=== PATIENT | female | born 1950 | race Caucasian/White ===

== ENCOUNTER 2019-12-22 10:51 | Outpatient (CLI) | payer MEDICARE, SELFPAY ==
[2019-12-22 11:10] LABS: Basophils Percent Auto 0.3 % (0.2-1.2); Eosinophils Absolute Auto 0.1 K/mm3 (0-0.3); Eosinophils Percent Auto 1.9 % (0-4.4); Hematocrit 36.7 % (37.0-47.0); Lymphocytes Absolute Auto 1.98 K/mm3 (0.9-3.2); Lymphocytes Percent Auto 53.7 % (18.3-44.2); Mean Corpuscular HGB Conc 33.5 g/dl (32-36); Mean Corpuscular Hemoglobin 33.4 pg (26-34); Mean Corpuscular Volume 99.7 fl (80-100); Mean Platelet Volume 10.8 fl (7.4-10.4); Monocytes Absolute Auto 0.2 K/mm3 (0.1-0.6); Monocytes Percent Auto 4.3 % (2.6-8.5); Neutrophils Absolute Auto 1.5 K/mm3 (1.3-6.7); Neutrophils Percent Auto 39.8 % (45.5-73.1); Platelet Count Result 160 k/mm3 (150-375); Red Blood Count 3.68 M/mm3 (4.2-5.4); Red Cell Distribution Width 12.8 % (11.5-14.5); White Blood Count 3.7 K/mm3 (4.5-10.0)
[2019-12-22 11:26] LABS: Alanine Aminotransferase 19 U/L (4-35); Albumin Level 4.4 g/dL (3.5-5.1); Alkaline Phosphatase 73 U/L (38-126); Anion Gap 9 mmol/L (8-16); Aspartate Amino Transferase 27 U/L (14-36); Bilirubin,Total 0.7 mg/dL (0.2-1.3); Blood Urea Nitrogen 23 mg/dL (7-17); Calcium 9.3 mg/dL (8.4-10.2); Carbon Dioxide 24 mmol/L (22-30); Chloride 103 mmol/L (98-107); Estimated Glomerular Filt Rate > 60; Glucose 143 mg/dL (65-105); Potassium 4.7 mmol/L (3.4-5.0); Sodium 136 mmol/L (137-145)
[2019-12-22 11:27] LABS: Hemoglobin 12.3 g/dL (12.0-15.0)
[2019-12-22 11:32] LABS: Add Urine Microscopic? YES; Appearance Urine Clear (Clear); Bilirubin Urine Negative (Negative); Blood Urine Negative (Negative); Color Urine Yellow (Yellow); Glucose Urine UA Negative (Negative); Ketones Urine Negative (Negative); Leukocyte Esterase Ur 1+ LEU/UL (Negative); Mucus Urine Rare /lpf; Nitrate Urine Negative (Negative); Protein Urine Negative (Negative); RBC Urine 0-2 /hpf (0-2); Specific Grav Ur 1.014 (1.001-1.035); Squamous Epithelial Cell Urine Few /hpf (Few); Urobilinogen Urine Negative mg/dL (<2.0)
[2019-12-22 11:42] LABS: Iron 113 ug/dL (37-170)
[2019-12-22 11:51] LABS: Percent Iron Saturation 33 % (20-50)
[2019-12-22 12:12] LABS: Hemoglobin A1C 5.5 % (<5.7)
== END 2019-12-22 10:52 | disposition home or self-care (01) ==
PROVIDERS: PCP Internal Medicine; Visit Provider Clinical Nurse Specialist
DX: R73.01 Impaired fasting glucose (principal); D64.9 Anemia, unspecified; I95.9 Hypotension, unspecified
CPT/HCPCS: 36415; 80053; 81001; 82728; 83036; 83540; 83550; 83735; 84443; 85025

== ENCOUNTER 2020-01-29 06:48 | Outpatient (CLI) | payer MEDICARE, SELFPAY ==
--- NOTE | ~2020-01-29 | CT_ITS ---
EXAMINATION: CT abdomen pelvis wo/w con DATE: 01/29/2020 07:45 INDICATION: Gross hematuria TECHNIQUE: Computed tomography (CT) of the abdomen and pelvis was performed without and subsequently with 130 cc Omnipaque 350 intravenous contrast. Automated exposure control and iterative reconstructi on technique were employed. Exam dose: 791.33 mGy-cm total exam DLP. COMPARISON: 01/29/2020 KUB 08/09/2015 complete abdominal ultrasound FINDINGS: There are localized areas of discoid atelectasis or scarring of the lung bases. No pulmonar y consolidation. No pleural effusion. Normal heart size. No pericardial effusion. There are scattered hepatic hypoattenuating lesions, the largest situated in the lateral segment of t he left hepatic lobe, measuring 9 mm maximal dimension. These are likely hepatic cysts. The gallbladder is present. No bile duct dilatation. No pancreatic mass lesion or calcification or pa ncreatic duct dilatation. Normal splenic size. Normal morphology of the adrenal glands. Noncontrast examination reveals no urinary tract calculus or hydroureteronephrosis. There are multiple bilateral small renal cysts, the largest approximately 8.5 mm. No filling defect o f the renal collecting systems, ureters or urinary bladder is evident. Normal caliber of the abdominal aorta. No intraperitoneal or retroperitoneal or pelvic mass lesion or adenopathy or ascites. Minimal sigmoid diverticulosis; no CT evidence of diverticulitis. No bowel obstruction, bowel wall th ickening, pneumatosis or intraperitoneal free air is detected. There is severe degenerative disc disease and minimal retrolisthesis at L4-5. No suspicious osteolytic or osteoblastic lesions are noted. IMPRESSION: Hepatic and renal cysts Mild sigmoid diverticulosis Reviewed, dictated and finalized at Location [facility]. Reviewed, dictated and finalized at location B.
--- NOTE | ~2020-01-29 | XR_ITS ---
XR abdomen/kub 1V DATE: 01/29/2020 07:15 INDICATION: Gross hematuria TECHNIQUE: AP projection COMPARISON: 01/29/2020 CT abdomen pelvis with and without IV contrast material FINDINGS: There is no evidence of bowel obstruction. There are some nonspecific nondistended gas cont aining small bowel segments which might represent mild adynamic ileus. The psoas shadows are intact. No visceromegaly is evident. No significant abnormal calcification is detected. Included skeletal structures are unremarkable. IMPRESSION: Nonspecific abdomen Reviewed, dictated and finalized at [facility]. Reviewed, dictated and finalized at location B. IMPRESSION: Nonspecific abdomen
[2020-01-29 07:24] LABS: Estimated Glomerular Filt Rate > 60
== END 2020-01-29 06:49 | disposition home or self-care (01) ==
LOC: ANHIMG 06:49
PROVIDERS: PCP Internal Medicine; Visit Provider Nurse Practitioner Family
DX: R31.0 Gross hematuria (principal); K57.30 Diverticulosis of large intestine without perforation or abscess without bleeding; N28.1 Cyst of kidney, acquired; K76.89 Other specified diseases of liver
CPT/HCPCS: 74018; 74178; Q9967

== ENCOUNTER 2020-11-08 08:56 | Outpatient (CLI) | payer MEDICARE, SELFPAY ==
--- NOTE | ~2020-11-08 | DEXA_ITS ---
Bone Density Report Name: Rocio Malave Age: 70 Sex: Female Ethnicity: White Date of : 1950 Indication: postmenopausal; hysterectomy; Referring Provider: SELINA RICK D.O. Study: Bone densitometry was performed. Exam Date: November 08, 2020 Accession number: [id number] Bone Density: Region BMD T-score Z-score Classification AP Spine (L1, L3) 1.084 0.6 2.7 Normal Femoral Neck (Left) 0.769 -0.7 1.1 Normal Total Hip (Left) 0.887 -0.5 1.1 Normal Total Hip Bilateral Avg 0.917 -0.3 1.4 Normal Femoral Neck (Right) 0.840 -0.1 1.7 Normal Total Hip (Right) 0.946 0.0 1.6 Normal World Health Organization criteria for BMD impression classify patients as: Normal (T-score at or above -1.0), Osteopenia (T-score between -1.0 and -2.5), or Osteoporosis (T-score at or below -2.5). 10-year Fracture Risk: FRAX not reported because: All T-scores for Spine Total, Hip Total, Femoral Neck at or above -1.0 Previous Exams: Region Exam Age BMD T-score BMD Change BMD Change Date g/cm2 vs Baseline vs Previous AP Spine(L1, L3) 11/08/2020 70 1.084 0.6 -0.019(-1.8%) -0.019(-1.8%) 08/05/2017 67 1.103 0.8 Total Hip(Left) 11/08/2020 70 0.887 -0.5 -0.076(-7.8%)* -0.076(-7.8%)* 08/05/2017 67 0.962 0.2 Total Hip(Right) 11/08/2020 70 0.946 0.0 -0.069(-6.8%)* -0.069(-6.8%)* 08/05/2017 67 1.015 0.6 *Denotes significance at 95% confidence level, LSC for AP Spine = 0.022 g/cm2, LSC for Total Hip = 0.027 g/cm2 Clinical Information Provided by Patient: Has used the following medications: Vitamin D Has the following medical conditions: Hysterectomy Patient maximum height was 61 Menopause Age: 50 Onset of menses at age 13 Number of children 1 Impression: The patient has normal bone mass. The BMD for the Total Hip(Left) decreased, changing by -7.8% since the last DXA exam. The BMD for the Total Hip(Right) decreased, changing by -6.8% since the last DXA exam. Discussion: BONE DENSITY IS ABOVE THE MINIMUM DESIRABLE LEVEL AT ALL SKELETAL SITES TESTED. This patient?s bone mineral density is above the minimum desirable level (T-score -1.0 or better) at all sites measured. The patient should follow a healthful lifestyle (good nutrition with adequate calcium and vitamin D, and appropriate weight-bearing exercise). Follow-Up: Consider repeating this study in 3 to 4 years to reassess this patient's status, or sooner if there is some new clinical indication.
== END 2020-11-08 08:57 | disposition home or self-care (01) ==
LOC: ANHIMG 08:57
PROVIDERS: PCP Internal Medicine; Visit Provider Internal Medicine
DX: Z78.0 Asymptomatic menopausal state (principal)
CPT/HCPCS: 77080

== ENCOUNTER 2021-01-01 10:02 | Outpatient (CLI) | payer MEDICARE, SELFPAY ==
--- NOTE | ~2021-01-01 | XR_ITS ---
EXAMINATION: XR_CERV2-3V_CR EXAM DATE: 01/01/2021 10:27 INDICATION: Cervicalgia, right-sided base of skull. TECHNIQUE: Frontal, lateral projections of the cervical spine, open-mouth odontoid projection. Ther e is no prior study for comparison. FINDINGS: The odontoid process is intact. The lateral masses of C1 line up with C2. There is 4 mm a nterolisthesis C7 on T1 with advanced facet arthropathy at this level. There is moderate to severe di sc disease C4-5 and 5-6, moderate at C6-7. Mid cervical uncovertebral joint disease causing some amou nt of neural foraminal stenosis. Prevertebral soft tissue and pre-dens space are within normal limits . Lung apices are clear. IMPRESSION: Cervical spondylosis as above. Reviewed, dictated and finalized at location B.
== END 2021-01-01 10:03 | disposition home or self-care (01) ==
PROVIDERS: PCP Internal Medicine; Visit Provider Nurse Practitioner
DX: M47.812 Spondylosis without myelopathy or radiculopathy, cervical region (principal); M48.02 Spinal stenosis, cervical region
CPT/HCPCS: 72040

== ENCOUNTER 2021-02-18 10:00 | Outpatient (RCR) | payer MEDICARE, SELFPAY ==
--- NOTE | 2021-01-30 11:22 | PTOPEVAL ---
PHYSICAL THERAPY EVALUATION AND PLAN OF CARE Thank you for referring Rocio Malave to [facility].? The patient is scheduled to be seen for therapy? 1-2x/week for 3-5 weeks. Please review, sign, date and return this plan of care OSVALDO. I agree with and certify that the following plan of care is medically necessary. Referring Physician Date Attending Provider: Nadiya Monahan, ANA Evaluation Diagnosis neck pain Onset 10/2020 Subjective Information States that starting in October Query Text:As Reported By Patient/ 2020 she started to feel a lot Family of stiffness in the right side of the neck. She thought it was from doing more yard work. It never did go away. She was trying alternating heat/ice which was temporary. States that she enjoys swimming several times a week and she has been having difficulty because o Self Report Pain Assessment Left Neck Reported Pain Level 3 Pain Description Aching,Spasms,Tightness Pain Frequency Chronic,Intermittent Other Pain Aggravating Factors swimming Pain Score Pain Score 3: Self Report Interventions Used Interventions Used By Clinicians Exercise,Joint Mobilization Pain Relief Interventions Used By Heat Patient Cervical and Lumbar ROM Cervical ROM Cervical Flexion (0-60) 45 Query Text:Active in Degrees Cervical Extension (0-70) 30 Query Text:Active in Degrees Cervical Rotation Right (0-90) 55 Query Text:Active in Degrees Cervical Rotation Left (0-90) 40 Query Text:Active in Degrees Cervical ROM Comments pain with rotation and extension; very mild pull with flexion Upper Extremity Muscle Strength Testing Scapular/Shoulder Left Shoulder Flexion Strength 5 Normal Shoulder Extension Strength 5 Normal Shoulder Abduction Strength 5 Normal Shoulder Medial Rotation Strength 5 Normal Shoulder Lateral Rotation Strength 5 Normal Right Shoulder Flexion Strength 4 Good Shoulder Extension Strength 4 Good Shoulder Abduction Strength 4 Good Shoulder Medial Rotation Strength 4+ Good + Shoulder Lateral Rotation Strength 4+ Good + Palpation Assessment Palpation Palpation significant tightness noted to upper trapezius, posterior scalenes, and suboccipitals General Exercise General Exercises Side Bilateral Exercise Type
--- NOTE | 2021-02-18 11:13 | PTOPEVAL ---
PHYSICAL THERAPY DISCHARGE NOTE Thank you for referring Rocio Malave to [facility].? Please review, sign, date and return this plan of care OSVALDO. I agree with and certify that the following plan of care is medically necessary. Referring Physician Date Attending Provider: Nadiya Monahan, ASSISTANT KITCHEN MANAGER Discharge Diagnosis neck pain Onset 10/2020 Subjective Information States she is doing ok. She is Query Text:As Reported By Patient/ not sure she is feeling a lot Family better at this time. She did try a water aerobics class and was very sore afterward. We discussed at length how she can continue to improving her symptoms at home and what she can do to help maintain a healthy spine. Discussed the difference between arthritic pain and muscle pain and how likely she is experiencing decreased motion of the neck secondary to arthritis but because of the decreased motion she is having pain and tightness in the muscles. She seems to be of understanding Self Report Pain Assessment Left Neck Reported Pain Level 3 Pain Description Aching,Tightness Pain Score Pain Score 3: Self Report Interventions Used Interventions Used By Clinicians Exercise,Heat,Joint Mobilization Cervical and Lumbar ROM Cervical ROM Cervical Flexion (0-60) 45 Query Text:Active in Degrees Cervical Extension (0-70) 30 Query Text:Active in Degrees Cervical Rotation Right (0-90) 60 Query Text:Active in Degrees Cervical Rotation Left (0-90) 50 Query Text:Active in Degrees Cervical ROM Comments pain with rotation and extension; Upper Extremity Muscle Strength Testing Scapular/Shoulder Left Shoulder Flexion Strength 5 Normal Shoulder Extension Strength 5 Normal Shoulder Abduction Strength 5 Normal Shoulder Medial Rotation Strength 5 Normal Shoulder Lateral Rotation Strength 5 Normal Right Shoulder Flexion Strength 4+ Good + Shoulder Extension Strength 4+ Good + Shoulder Abduction Strength 4+ Good + Shoulder Medial Rotation Strength 4+ Good + Shoulder Lateral Rotation Strength 4+ Good + Palpation Assessment Palpation Palpation improved muscle tissue quality with decrease
== END 2021-02-18 13:56 | disposition home or self-care (01) ==
LOC: ANHPT 10:00
PROVIDERS: PCP Internal Medicine; Visit Provider Nurse Practitioner
DX: M54.2 Cervicalgia (principal)
CPT/HCPCS: 97110; 97140; 97162

== ENCOUNTER 2021-12-01 08:36 | Outpatient (CLI) | payer MEDICARE, SELFPAY ==
[2021-12-01 18:50] LABS: Basophils Percent Auto 0.4 % (0.2-1.2); Eosinophils Absolute Auto 0.1 K/mm3 (0-0.3); Hematocrit 37.5 % (37.0-47.0); Hemoglobin 12.1 g/dL (12.0-15.0); Immature Granulocyte Absolute 0.01 K/mm3 (0.00-0.031); Immature Granulocyte Percent A 0.2 % (0-0.5); Immature Platelet Fraction Pct 4.9 % (0.9-11.2); Lymphocytes Absolute Auto 3.68 K/mm3 (0.9-3.2); Mean Corpuscular HGB Conc 32.3 g/dl (32-36); Mean Corpuscular Volume 105.3 fl (80-100); Mean Platelet Volume 13.2 fl (7.4-10.4); Monocytes Absolute Auto 0.2 K/mm3 (0.1-0.6); Monocytes Percent Auto 3.8 % (2.6-8.5); Neutrophils Absolute Auto 1.3 K/mm3 (1.3-6.7); Neutrophils Percent Auto 24.6 % (45.5-73.1); Platelet Count Result 156 k/mm3 (150-375); Red Blood Count 3.56 M/mm3 (4.2-5.4); Red Cell Distribution Width 14.6 % (11.5-14.5); White Blood Count 5.3 K/mm3 (4.5-10.0)
[2021-12-01 18:58] LABS: Alanine Aminotransferase 19 U/L (6-35); Albumin Level 4.4 g/dL (3.5-5.1); Alkaline Phosphatase 82 U/L (38-126); Anion Gap 8 mmol/L (8-16); Aspartate Amino Transferase 45 U/L (14-36); Bilirubin,Total 0.5 mg/dL (0.2-1.3); Blood Urea Nitrogen 20 mg/dL (7-17); Calcium 9.7 mg/dL (8.4-10.2); Carbon Dioxide 27 mmol/L (22-30); Chloride 104 mmol/L (98-107); Cholesterol 189 mg/dL (0-200); Estimated Glomerular Filt Rate > 60; Glucose 90 mg/dL (65-110); HDL Direct 54 mg/dL; Sodium 139 mmol/L (137-145); Triglycerides 76 mg/dL (<150)
[2021-12-01 19:09] LABS: LDL Cholesterol Direct 102 mg/dL
[2021-12-01 22:20] LABS: Vitamin D 25 Hydroxy 66.1 ng/mL
== END 2021-12-01 08:37 | disposition home or self-care (01) ==
LOC: ANHGOSHLAB 08:38
PROVIDERS: PCP Internal Medicine; Visit Provider Nurse Practitioner
DX: E55.9 Vitamin D deficiency, unspecified (principal); Z13.220 Encounter for screening for lipoid disorders; Z13.29 Encounter for screening for other suspected endocrine disorder
CPT/HCPCS: 36415; 80053; 80061; 82306; 85025; 85055

== ENCOUNTER 2022-03-13 10:51 | Outpatient (CLI) | payer MEDICARE, SELFPAY ==
[2022-03-13 11:04] LABS: Basophils Percent Auto 0.4 % (0.2-1.2); Eosinophils Absolute Auto 0.1 K/mm3 (0-0.3); Eosinophils Percent Auto 2.1 % (0-4.4); Hematocrit 34.8 % (37.0-47.0); Hemoglobin 11.4 g/dL (12.0-15.0); Immature Granulocyte Absolute 0.01 K/mm3 (0.00-0.031); Immature Granulocyte Percent A 0.2 % (0-0.5); Lymphocytes Absolute Auto 2.93 K/mm3 (0.9-3.2); Lymphocytes Percent Auto 61.2 % (18.3-44.2); Mean Corpuscular HGB Conc 32.8 g/dl (32-36); Mean Corpuscular Hemoglobin 35.1 pg (26-34); Mean Corpuscular Volume 107.1 fl (80-100); Mean Platelet Volume 9.7 fl (7.4-10.4); Monocytes Absolute Auto 0.3 K/mm3 (0.1-0.6); Monocytes Percent Auto 5.6 % (2.6-8.5); Neutrophils Absolute Auto 1.5 K/mm3 (1.3-6.7); Neutrophils Percent Auto 30.5 % (45.5-73.1); Platelet Count Result 113 k/mm3 (150-375); Red Blood Count 3.25 M/mm3 (4.2-5.4); White Blood Count 4.8 K/mm3 (4.5-10.0)
[2022-03-13 11:22] LABS: Platelet Estimate Decreased (Adequate); Schistocytes None Seen (NORMAL)
[2022-03-13 11:23] LABS: Atypical Lymphocytes Present
[2022-03-13 13:13] LABS: Alanine Aminotransferase 21 U/L (6-35); Albumin Level 4.5 g/dL (3.5-5.1); Alkaline Phosphatase 72 U/L (38-126); Anion Gap 10 mmol/L (8-16); Aspartate Amino Transferase 28 U/L (14-36); Bilirubin,Total 0.6 mg/dL (0.2-1.3); Blood Urea Nitrogen 16 mg/dL (7-17); Calcium 9.1 mg/dL (8.4-10.2); Carbon Dioxide 24 mmol/L (22-30); Chloride 106 mmol/L (98-107); Estimated Glomerular Filt Rate > 60; Glucose 82 mg/dL (65-110); Lactate Dehydrogenase 177 U/L (120-246); Potassium 3.7 mmol/L (3.4-5.0); Sodium 140 mmol/L (137-145)
== END 2022-03-13 10:52 | disposition home or self-care (01) ==
LOC: ANHLAB 10:52
PROVIDERS: PCP Internal Medicine; Visit Provider Internal Medicine Hematology & Oncology
DX: D72.820 Lymphocytosis (symptomatic) (principal)
CPT/HCPCS: 36415; 80053; 83615; 85025; 88184

== ENCOUNTER 2022-04-02 14:14 | Outpatient (CLI) | payer MEDICARE, SELFPAY ==
--- NOTE | ~2022-04-02 | CT_ITS ---
EXAMINATION: CT chest abdomen pelvis w con DATE: 04/02/2022 14:51 INDICATION: Enlarged lymph nodes TECHNIQUE: Computed tomography (CT) of the chest, abdomen and pelvis was performed with 100 CC Omnipa que 350 intravenous contrast. Automated exposure control and iterative reconstruction technique were employed. Exam dose: 333.14 mGy-cm total exam DLP. COMPARISON: 01/29/2020 CT abdomen pelvis 08/09/2015 abdominal ultrasound examination FINDINGS: Normal heart size. No pericardial or pleural effusion. No hilar or mediastinal mass lesion or lymphadenopathy. No thoracic aortic aneurysm or dissection. No pulmonary infiltrate or consolidation or pulmonary mass lesion is detected. Multiple up to approximately 9 mm hepatic probable cysts, stable since 01/29/2020. There is a peripherally enhancing approximately 1.6 cm lesion of the medial segment of the left hepat ic lobe near the dorina hepatis which corresponds to a hyperechoic lesion in similar location on 016 abdominal ultrasound examination. This is likely a hemangioma. Consider MR liver examination for further evaluation. Spleen measures up to 2.6 cm vertical dimension, within normal range... No pancreatic mass lesion or calcification or ductal dilatation. The gallbladder is present. No gallbladder wall thickening or pericholecystic fluid or fat stranding. No bile duct dilatation is noted. Normal morphology of the adrenal glands. Occasional bilateral renal cysts, the largest situated on the left measuring up to approximately 1.6 cm. No urinary tract calculus or hydroureteronephrosis. The urinary bladder is unremarkable. Normal caliber of the abdominal aorta. No intraperitoneal or retroperitoneal or pelvic adenopathy or ascites. There is a large complex largely cystic pelvic mass centered slightly left of midline, measuring up t o 7.8 cm vertical dimension, 6.2 cm transverse and anteroposterior dimension.. This is suspicious for left ovarian cystic neoplastic process; differential diagnosis includes ovarian cystadenoma or cysta denocarcinoma.. Gynecologic consult is recommended. There are scattered small bowel air-fluid levels but no abnormal dilatation of small or large bowel o r bowel obstruction. No intraperitoneal free air. Very small fat-containing umbilical hernia. Prominent degenerative disc disease in lower cervical spine. Degenerative spurring of the thoracic sp ine. Severe degenerative disc disease and mild retrolisthesis at L4-5. No suspicious osteolytic or osteoblastic lesions are noted. IMPRESSION: Complex largely cystic up to 6.2 x 7.8 cm left pelvic mass, suspicious for cystadenoma or cystadenocarcinoma. Gynecologic consult is recommended. Peripherally enhancing 1.6 cm hepatic mass suggestive of hemangioma; consider MR imaging for further evaluation Multiple stable hepatic cysts Multiple bilateral renal cysts Reviewed, dictated and finalized at Location A. Reviewed, dictated and finalized at location B. FINISHER IMPRESSION: Complex largely cystic up to 6.2 x 7.8 cm left pelvic mass, suspici ous for cystadenoma or cystadenocarcinoma. Gynecologic consult is recommended. Peripherally enhancing 1.6 cm hepatic mass suggestive of hemangioma; consider M R imaging for further evaluation Multiple stable hepatic cysts Multiple bilateral renal cysts
== END 2022-04-02 14:15 | disposition home or self-care (01) ==
PROVIDERS: PCP Internal Medicine; Visit Provider Internal Medicine Hematology & Oncology
DX: R59.1 Generalized enlarged lymph nodes (principal); K76.89 Other specified diseases of liver; N28.1 Cyst of kidney, acquired
CPT/HCPCS: 71260; 74177; Q9967

== ENCOUNTER 2022-04-08 11:25 | Day surgery (SDC) | payer MEDICARE, SELFPAY ==
[2022-01-21 08:11] VITALS: BMI 23.8
[2022-03-31 09:38] VITALS: BMI 22.8
--- NOTE | 2022-04-07 15:28 | PM.HPGS ---
History of Present Illness History of Present Illness Consent: Risks, benefits, and alternatives have been discussed and questions answered. Patient agrees to proceed with procedure. Chief complaint: Family history colon cancer and hx colon polyp Narrative: Rocio Malave is a 71 year old female who is here for colon cancer screening. Her mother had colon cancer. Also patient has had polyps removed in the past. Her last colonoscopy was 7 years ago. Review of Systems Review of Systems: All systems reviewed & are unremarkable except as noted in HPI and below PMFSH Past Medical History Medical History Chicken pox Chronic bronchitis Heart murmur Hemorrhoids Osteoarthritis Surgical History Surgical History H/O knee surgery History of hysterectomy Family History Family History Father Leukemia Mother Renal failure Colon cancer Multiple myeloma Social History Social History Smoking status: Never smoker Alcohol intake: never Alcohol use details: occasional Substance use: never Substance use type: does not use Living arrangements: with family Spiritual care concerns: No Meds Home Medications and Allergies Home Medications Medication Instructions Recorded Confirmed Type cholecalciferol (vitamin D3) 25 1,000 unit PO DAILY 11/18/20 03/31/22 History mcg (1,000 unit) capsule multivitamin 1 tablet PO DAILY 11/18/20 03/31/22 History Allergies Allergy/AdvReac Type Severity Reaction Status Date / Time codeine Allergy Unknown Hives Verified 03/31/22 09:37 Sulfa (Sulfonamide Allergy Unknown Nausea Verified 03/31/22 09:37 Antibiotics) Exam Resp: Auscultation: clear to auscultation bilaterally Cardio: Rate: regular rate Rhythm: regular rhythm GI: GI Palp: Yes Soft to palpation and No Tenderness to palpation present (GI) Assessment and Plan Assessment and plan (1) Colon cancer screening: Code(s): Z12.11 - Encounter for screening for malignant neoplasm of colon Status: Acute Assessment and Plan: Colonoscopy with possible biopsy or polypectomy or cautery or injection of substances.
--- NOTE | 2022-04-08 08:47 | P.PNAN_ITS ---
Anes - Initial Pre Proc Eval Procedure: Operation Date: 04/08/22 13:00 Proposed Procedures p Screening Colonoscopy - Anuel Chacon MD Date/Time: 04/08/22 08:47 Surgeon: Anuel Chacon MD Pre Op Diagnosis: Family history colon cancer and hx colon polyp Patient Data Age: 71 Gender: F Height: 1.55 m Weight: 55 kg Allergies Allergy/AdvReac Type Severity Reaction Status Date / Time codeine Allergy Unknown Hives Verified 04/08/22 12:11 Sulfa (Sulfonamide Allergy Unknown Nausea Verified 04/08/22 12:11 Antibiotics) Home Medications Medication Instructions Recorded Confirmed Type cholecalciferol (vitamin D3) 25 1,000 unit PO DAILY 11/18/20 03/31/22 History mcg (1,000 unit) capsule multivitamin 1 tablet PO DAILY 11/18/20 03/31/22 History Patient hx anesthesia problems: none Family hx anesthesia problems: none Results Review: All pre-operative results and documents have been reviewed as part of the pre- operative evaluation. [facility] Past Medical History Medical History Chicken pox Chronic bronchitis Heart murmur Hemorrhoids Osteoarthritis Surgical History Surgical History H/O knee surgery History of hysterectomy Family History Family History Father Leukemia Mother Renal failure Colon cancer Multiple myeloma Social History Social History Smoking status: Never smoker Alcohol intake: never Alcohol use details: occasional Substance use: never Substance use type: does not use Living arrangements: with family Spiritual care concerns: No Anes - Eval Final PreProcedure Day of Procedure 04/08/22 08:47 Patient weight: normal Heart: regular rate and rhythm Lungs: clear to auscultation and normal air movement Airway: Mallampati scale class II Neurological: alert and oriented Last oral intake: >/= 8 hours ASA classification: I Emergent: no Anesthetic plan: proceed Anesthesia type and monitoring: general GIVS and standard monitoring Results Review: All pre-operative results and documents have been reviewed as part of the pre- operative evaluation. Informed Consent: The patient's anesthetic plan and its attendant risks and benefits were discussed with the patient/family/POA. Questions were solicited and answers provided to the satisfaction of the patient/family/POA.
[2022-04-08 11:50] VITALS: BP 129/78; PULSE 76; RESP 20; TEMP 37.2; O2SAT 99
[2022-04-08] MEDS: LACTATED RINGERS 1,000 ML 150 ML IV CONT (12:20)
[2022-04-08 13:24] VITALS: BP 95/65; PULSE 72; RESP 16; O2SAT 100
[2022-04-08 13:34] VITALS: BP 119/76; PULSE 66; RESP 16; O2SAT 100
[2022-04-08 13:44] VITALS: BP 114/90; PULSE 75; RESP 16
--- NOTE | 2022-04-08 13:48 | SUR.PHASEII ---
PT AWAKE AND ALERT. EATING AND DRINKING. DENIES PAIN. SPOUSE AT BEDSIDE. PT TALKATIVE.
--- NOTE | 2022-04-08 14:31 | WPDANESPN ---
Anes - Prog Note Post-Op Date/Time: 04/08/22 14:31 Cardiovascular status: normal Respiratory status: normal Airway patency: baseline Mental status: baseline Post-Op hydration status: normal Vital Signs: Last Vital Signs Temp 37.2 C 04/08/22 11:50 Pulse 75 04/08/22 13:44 Resp 16 04/08/22 13:44 BP 114/90 04/08/22 13:44 Pulse Ox 100 04/08/22 13:34 O2 Del Method Room Air 04/08/22 13:44 Pain Score (VAS): 0 I/O: Intake & Output 04/07/22 04/08/22 04/08/22 23:59 07:59 15:59 Intake Total 600 Balance 600 Post-procedural complaints: none Patient Feedback: Patient satisfied with anesthetic care. Other Findings: Patient vital signs back to baseline. Patient denies nausea and vomiting. Patient's pain under control. Patient OK for discharge.
== END 2022-04-08 14:08 | disposition home or self-care (01) ==
PROVIDERS: PCP Internal Medicine; Visit Provider Internal Medicine Gastroenterology
PROC: 0DJD8ZZ Inspection of Lower Intestinal Tract, Via Natural or Artificial Opening Endoscopic (ICD-10-PCS; CPT 45378; principal; 2022-04-08 13:00)
DX: Z12.11 Encounter for screening for malignant neoplasm of colon (principal)
CPT/HCPCS: 45378

== ENCOUNTER 2022-04-23 09:48 | Outpatient (CLI) | payer MEDICARE, SELFPAY ==
--- NOTE | ~2022-04-23 | MR_ITS ---
EXAMINATION: MR abdomen wo/w con DATE: 04/23/2022 11:15 INDICATION: Liver mass TECHNIQUE: Magnetic resonance imaging (MRI) of the abdomen was performed without and with 11 mL Multi laura intravenous contrast. Sequences included coronal T2-weighted SS-FSE, coronal and axial FS 2D-F IESTA, axial STIR FSE, axial T2-weighted SS-FSE, axial T2-weighted FS SS-FSE, axial diffusion-weighte d SE, axial dual-echo T1-weighted FSPGR, and axial and coronal T1-weighted LAVA. Postcontrast axial T 1-weighted LAVA images were obtained in a time course. Postcontrast coronal T1-weighted LAVA images w ere obtained. COMPARISON: CT dated 04/02/2022 FINDINGS: Heart size is normal. No pericardial or pleural effusion. There are multiple T2 hyperintense nonenhan cing cysts scattered throughout the liver. 1.6 cm lesion at the junction of segments 4A and 4B of the liver which demonstrates peripheral discontiguous puddling of contrast isointense to the aorta on th e arterial phase imaging which progressively fills in on the more delayed imaging consistent with a h emangioma. Gallbladder, spleen, pancreas and bilateral adrenal glands are normal. There are a few sma ll T2 hyperintense nonenhancing cysts in both kidneys the largest on the left measuring 1.6 cm in max imal diameter. Visualized portion of the bowels are unremarkable. No pathologically enlarged abdomina l lymphadenopathy. 8.5 x 6.4 x 5.9 cm complex cystic lesion in the left hemipelvis with numerous thin but likely enhancing internal septations concerning for a left ovarian neoplasm. Severe right-sided predominant disc height loss with fibrovascular degenerative endplate changes at L4-L5. Otherwise mil d lumbar and lower thoracic spondylosis. Bone marrow signal is otherwise unremarkable. IMPRESSION: 1. Previous identified 1.6 cm lesion in the left hepatic lobe demonstrates enhancement characteristic s diagnostic of hemangioma. 2. 8.6 cm complex cystic lesion in the left hemipelvis concerning for ovarian neoplasm which could be either benign or malignant. Recommend gynecologic consultation. Reviewed, dictated and finalized at location L. SERVICE EDUCATION TEACHER IMPRESSION: 1. Previous identified 1.6 cm lesion in the left hepatic lobe demonstrates enha ncement characteristics diagnostic of hemangioma. 2. 8.6 cm complex cystic lesion in the left hemipelvis concerning for ovarian n eoplasm which could be either benign or malignant. Recommend gynecologic consul tation.
== END 2022-04-23 09:49 | disposition home or self-care (01) ==
PROVIDERS: PCP Internal Medicine; Visit Provider Internal Medicine Hematology & Oncology
DX: R16.0 Hepatomegaly, not elsewhere classified (principal); K76.9 Liver disease, unspecified
CPT/HCPCS: 74183; A9577

== ENCOUNTER 2022-06-22 08:07 | Outpatient (CLI) | payer MEDICARE, SELFPAY ==
--- NOTE | ~2022-06-22 | MM_ITS ---
EXAMINATION: MM screening estelita BI w rajesh HISTORY: Screening mammogram TECHNIQUE: Craniocaudal and mediolateral oblique 3-D tomosynthesis images were obtained and synthetic 2-D images were generated. CAD analysis was submitted and interpreted. COMPARISON: April 14, 2019, April 11, 2018, April 07, 2017 bilateral screening mammogram exam inations BREAST PARENCHYMAL COMPOSITION: The breasts are heterogeneously dense, which may obscure small masses . FINDINGS: Occasional benign calcifications. There is no evidence of suspicious mass, calcification, o r architectural distortion to suggest malignancy in either breast. There has been no suspicious inter syed change. IMPRESSION: 1. No mammographic evidence of malignancy. 2. Recommend routine screening mammography in one year. BI-RADS Category 2: Benign finding(s). Reviewed, dictated and finalized at location A. GATION EQUIPMENT MECHANIC
== END 2022-06-22 08:08 | disposition home or self-care (01) ==
PROVIDERS: PCP Internal Medicine; Visit Provider Internal Medicine
DX: Z12.31 Encounter for screening mammogram for malignant neoplasm of breast (principal)
CPT/HCPCS: 77063; 77067

== ENCOUNTER 2022-07-27 13:05 | Outpatient (CLI) | payer MEDICARE, SELFPAY ==
[2022-07-27 13:23] LABS: Basophils Percent Auto 0.3 % (0.2-1.2); Eosinophils Absolute Auto 0.1 K/mm3 (0-0.3); Eosinophils Percent Auto 1.4 % (0-4.4); Hemoglobin 12.1 g/dL (12.0-15.0); Immature Granulocyte Absolute 0.01 K/mm3 (0.00-0.031); Immature Granulocyte Percent A 0.2 % (0-0.5); Immature Platelet Fraction Pct 4.8 % (0.9-11.2); Lymphocytes Absolute Auto 3.86 K/mm3 (0.9-3.2); Lymphocytes Percent Auto 66.8 % (18.3-44.2); Mean Corpuscular HGB Conc 32.7 g/dl (32-36); Mean Corpuscular Hemoglobin 34.3 pg (26-34); Mean Corpuscular Volume 104.8 fl (80-100); Mean Platelet Volume 10.2 fl (7.4-10.4); Monocytes Absolute Auto 0.3 K/mm3 (0.1-0.6); Monocytes Percent Auto 5.5 % (2.6-8.5); Neutrophils Absolute Auto 1.5 K/mm3 (1.3-6.7); Neutrophils Percent Auto 25.8 % (45.5-73.1); Platelet Count Result 131 k/mm3 (150-375); Red Blood Count 3.53 M/mm3 (4.2-5.4); Red Cell Distribution Width 14.4 % (11.5-14.5); White Blood Count 5.8 K/mm3 (4.5-10.0)
[2022-07-27 16:18] LABS: Alanine Aminotransferase 20 U/L (6-35); Albumin Level 4.4 g/dL (3.5-5.1); Alkaline Phosphatase 94 U/L (38-126); Anion Gap 7 mmol/L (8-16); Aspartate Amino Transferase 26 U/L (14-36); Bilirubin,Total 0.7 mg/dL (0.2-1.3); Blood Urea Nitrogen 18 mg/dL (7-17); Calcium 9.4 mg/dL (8.4-10.2); Carbon Dioxide 27 mmol/L (22-30); Chloride 104 mmol/L (98-107); Estimated Glomerular Filt Rate > 60; Glucose 85 mg/dL (65-110); Lactate Dehydrogenase 177 U/L (120-246); Potassium 4.4 mmol/L (3.4-5.0); Sodium 138 mmol/L (137-145)
== END 2022-07-27 13:06 | disposition home or self-care (01) ==
LOC: ANHLAB 13:08
PROVIDERS: PCP Internal Medicine; Visit Provider Internal Medicine Hematology & Oncology
DX: D72.820 Lymphocytosis (symptomatic) (principal)
CPT/HCPCS: 36415; 80053; 83615; 85025; 85055

== ENCOUNTER 2022-11-24 14:18 | Outpatient (CLI) | payer MEDICARE, SELFPAY ==
[2022-11-24 14:29] LABS: Basophils Percent Auto 0.2 % (0.2-1.2); Eosinophils Percent Auto 0.8 % (0-4.4); Hematocrit 34.7 % (37.0-47.0); Hemoglobin 11.6 g/dL (12.0-15.0); Immature Granulocyte Absolute 0.01 K/mm3 (0.00-0.031); Immature Granulocyte Percent A 0.2 % (0-0.5); Lymphocytes Percent Auto 60.8 % (18.3-44.2); Mean Corpuscular HGB Conc 33.4 g/dl (32-36); Mean Corpuscular Hemoglobin 34.6 pg (26-34); Mean Corpuscular Volume 103.6 fl (80-100); Mean Platelet Volume 9.9 fl (7.4-10.4); Monocytes Absolute Auto 0.3 K/mm3 (0.1-0.6); Monocytes Percent Auto 6.3 % (2.6-8.5); Neutrophils Absolute Auto 1.6 K/mm3 (1.3-6.7); Neutrophils Percent Auto 31.7 % (45.5-73.1); Platelet Count Result 116 k/mm3 (150-375); Red Blood Count 3.35 M/mm3 (4.2-5.4); White Blood Count 5.1 K/mm3 (4.5-10.0)
[2022-11-24 14:35] LABS: Atypical Lymphocytes Present; Platelet Estimate Decreased (Adequate); Schistocytes None Seen (NORMAL)
[2022-11-24 14:36] LABS: Anisocytosis 1+ (NORMAL)
[2022-11-24 16:21] LABS: Anion Gap 8 mmol/L (8-16); Blood Urea Nitrogen 21 mg/dL (7-17); Calcium 9.3 mg/dL (8.4-10.2); Carbon Dioxide 26 mmol/L (22-30); Chloride 100 mmol/L (98-107); Estimated Glomerular Filt Rate > 60; Glucose 85 mg/dL (65-110); Lactate Dehydrogenase 180 U/L (120-246); Potassium 4.2 mmol/L (3.4-5.0); Sodium 134 mmol/L (137-145)
== END 2022-11-24 14:19 | disposition home or self-care (01) ==
LOC: ANHLAB 14:20
PROVIDERS: PCP Internal Medicine; Visit Provider Internal Medicine Hematology & Oncology
DX: D72.820 Lymphocytosis (symptomatic) (principal)
CPT/HCPCS: 36415; 80048; 83615; 85025

== ENCOUNTER 2023-01-08 08:55 | Outpatient (CLI) | payer MEDICARE, SELFPAY ==
--- NOTE | 2023-01-08 09:13 | EST_ITS ---
Patient Info Name: Rocio Malave Age: 72 years : 1950 Gender: Female Ht: 61 in Wt: 126 lbs BSA: 1.58 m2 HR: 66 bpm BP: 136 / 86 mmHg Exam Date: 01/08/2023 9:27 AM Exam Location: [facility] Stress Patient Status: Outpatient Admit Date: 01/08/2023 Staff Ordering Physician: Ethel Orta NP Attending Provider: Ethel Orta NP Exercise Technologist: Glendy Ferreira CT Exercise Physician: Joselo Kelly DO Exam Type: CA stress test treadmill Study Info An exercise stress test was performed. Summary 1. 1. Negative Dennsi exercise stress test for ischemic ST changes by ECG criteria. 2. 2. Good functional capacity, achieving 7 METs of workload. 3. 3. Appropriate HR response to exercise. 4. 4. Appropriate HR recovery at 1 minute post exercise. 5. 5. No imaging with stress testing. 6. 6. Patient informed of the above results. Protocol: Dennis Stress ECG Details Stage: REST Duration (min): 0 min : 57 sec Speed (mph): 0.0 Grade (%): 0 HR (bpm): 72 SBP (mmHg): 136 DBP (mmHg): 86 METS: --- Stage: REST Duration (min): 22 min : 5 sec Speed (mph): 0.0 Grade (%): 0 HR (bpm): 77 SBP (mmHg): 136 DBP (mmHg): 86 METS: --- Stage: STAGE 1 Duration (min): 1 min : 0 sec Speed (mph): 1.7 Grade (%): 10 HR (bpm): 97 SBP (mmHg): 136 DBP (mmHg): 86 METS: --- Stage: STAGE 1 Duration (min): 2 min : 0 sec Speed (mph): 1.7 Grade (%): 10 HR (bpm): 105 SBP (mmHg): 136 DBP (mmHg): 86 METS: --- Stage: STAGE 1 Duration (min): 3 min : 0 sec Speed (mph): 1.7 Grade (%): 10 HR (bpm): 107 SBP (mmHg): 159 DBP (mmHg): 73 METS: --- Stage: STAGE 2 Duration (min): 1 min : 0 sec Speed (mph): 2.5 Grade (%): 12 HR (bpm): 121 SBP (mmHg): 159 DBP (mmHg): 73 METS: --- Stage: STAGE 2 Duration (min): 2 min : 0 sec Speed (mph): 2.5 Grade (%): 12 HR (bpm): 127 SBP (mmHg): 155 DBP (mmHg): 75 METS: --- Stage: STAGE 2 Duration (min): 2 min : 40 sec Speed (mph): 2.5 Grade (%): 12 HR (bpm): 124 SBP (mmHg): 155 DBP (mmHg): 75 METS: --- Stage: RECOVERY Duration (min): 0 min : 19 sec Speed (mph): 0.0 Grade (%): 0 HR (bpm): 120 SBP (mmHg): 155 DBP (mmHg): 75 METS: --- Stage: RECOVERY Duration (min): 1 min : 19 sec Speed (mph): 0.0 Grade (%): 0 HR (bpm): 89 SBP (mmHg): 155 DBP (mmHg): 75 METS: --- Stage: RECOVERY Duration (min): 2 min : 19 sec Speed (mph): 0.0 Grade (%): 0 HR (bpm): 77 SBP (mmHg): 155 DBP (mmHg): 75 METS: --- Stage: RECOVERY Duration (min): 2 min : 52 sec Speed (mph): 0.0 Grade (%): 0 HR (bpm): 77 SBP (mmHg): 123 DBP (mmHg): 80 METS: --- Rest HR: 77 bpm Peak HR: 128 bpm Rest Sys BP: 136 mmHg Peak Sys BP: 159 mmHg Max Pred HR: 148 bpm % Max Pred HR: 86 % Target HR: 126 bpm Max RPP: 20,352 bpm*mmHg Giron Score: 0 Termination Reason: Reached target heart rate or workl
== END 2023-01-08 08:56 | disposition home or self-care (01) ==
LOC: ANHCARD 08:56
PROVIDERS: PCP Internal Medicine; Visit Provider Nurse Practitioner
DX: R06.02 Shortness of breath (principal)
CPT/HCPCS: 93017

== ENCOUNTER → 2023-01-21 15:49 | Outpatient (CLI) | payer MEDICARE, SELFPAY ==
--- NOTE | ~2023-01-21 | XR_ITS ---
XR knee RT 3V DATE: 01/21/2023 16:01 INDICATION: Medial right knee pain. No injury. TECHNIQUE: AP, lateral, sunrise views COMPARISON: None FINDINGS: There is linear calcification along the medial aspect of the proximal tibia. No fracture or dislocation or joint effusion, periosteal reaction or bone destruction or significant knee joint space narrowing. No radiopaque and particular loose body or chondrocalcinosis. IMPRESSION: Linear calcification along the medial aspect of the proximal tibia Reviewed, dictated and finalized at location A.
== END ==
PROVIDERS: PCP Clinical Nurse Specialist; Visit Provider Clinical Nurse Specialist
DX: M25.561 Pain in right knee (principal)
CPT/HCPCS: 73562

== ENCOUNTER 2023-03-17 11:07 | Outpatient (CLI) | payer MEDICARE, SELFPAY ==
[2023-03-17 11:30] LABS: Basophils Percent Auto 0.2 % (0.2-1.2); Eosinophils Absolute Auto 0.1 K/mm3 (0-0.3); Eosinophils Percent Auto 1.1 % (0-4.4); Hematocrit 35.9 % (37.0-47.0); Hemoglobin 12.1 g/dL (12.0-15.0); Immature Granulocyte Absolute 0.01 K/mm3 (0.00-0.031); Immature Granulocyte Percent A 0.2 % (0-0.5); Lymphocytes Absolute Auto 3.27 K/mm3 (0.9-3.2); Lymphocytes Percent Auto 70.3 % (18.3-44.2); Mean Corpuscular HGB Conc 33.7 g/dl (32-36); Mean Corpuscular Hemoglobin 35.6 pg (26-34); Mean Corpuscular Volume 105.6 fl (80-100); Mean Platelet Volume 9.7 fl (7.4-10.4); Monocytes Absolute Auto 0.2 K/mm3 (0.1-0.6); Monocytes Percent Auto 3.2 % (2.6-8.5); Neutrophils Absolute Auto 1.2 K/mm3 (1.3-6.7); Platelet Count Result 112 k/mm3 (150-375); Red Cell Distribution Width 14.8 % (11.5-14.5); White Blood Count 4.7 K/mm3 (4.5-10.0)
[2023-03-17 11:39] LABS: Atypical Lymphocytes Present; Platelet Estimate Decreased (Adequate); Schistocytes None Seen (NORMAL)
[2023-03-17 16:47] LABS: Alanine Aminotransferase 24 U/L (6-35); Albumin Level 4.3 g/dL (3.5-5.1); Alkaline Phosphatase 77 U/L (38-126); Anion Gap 10 mmol/L (8-16); Aspartate Amino Transferase 30 U/L (14-36); Bilirubin,Total 0.6 mg/dL (0.2-1.3); Blood Urea Nitrogen 15 mg/dL (7-17); Calcium 9.7 mg/dL (8.4-10.2); Carbon Dioxide 25 mmol/L (22-30); Chloride 104 mmol/L (98-107); Estimated Glomerular Filt Rate > 60; Glucose 74 mg/dL (65-110); Lactate Dehydrogenase 197 U/L (120-246); Potassium 4.1 mmol/L (3.4-5.0); Sodium 139 mmol/L (137-145)
== END 2023-03-17 11:08 | disposition home or self-care (01) ==
LOC: ANHLAB 11:10
PROVIDERS: PCP Internal Medicine; Visit Provider Internal Medicine Hematology & Oncology
DX: D72.820 Lymphocytosis (symptomatic) (principal)
CPT/HCPCS: 36415; 80053; 83615; 85025

== ENCOUNTER → 2023-06-21 15:15 | Outpatient (CLI) | payer MEDICARE, SELFPAY ==
--- NOTE | ~2023-06-21 | XR_ITS ---
Clinical Indication: Chest pain PA and lateral views of the chest: Comparison: None Findings: The lungs are clear, without evidence of focal consolidation or pleural effusion. Cardiome diastinal silhouette is within normal limits. Bones and soft tissues are unremarkable. Impression: Normal chest. Reviewed, dictated and finalized at [facility]. 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
== END ==
PROVIDERS: PCP Internal Medicine; Visit Provider Internal Medicine
DX: R07.89 Other chest pain (principal)
CPT/HCPCS: 71046

== ENCOUNTER 2023-07-14 12:56 | Outpatient (CLI) | payer MEDICARE, SELFPAY ==
[2023-07-14 13:12] LABS: Basophils Percent Auto 0.4 % (0.2-1.2); Eosinophils Absolute Auto 0.1 K/mm3 (0-0.3); Eosinophils Percent Auto 0.9 % (0-4.4); Hematocrit 36.5 % (37.0-47.0); Immature Granulocyte Absolute 0.01 K/mm3 (0.00-0.031); Immature Granulocyte Percent A 0.2 % (0-0.5); Lymphocytes Absolute Auto 3.32 K/mm3 (0.9-3.2); Lymphocytes Percent Auto 60.6 % (18.3-44.2); Mean Corpuscular HGB Conc 32.9 g/dl (32-36); Mean Corpuscular Hemoglobin 34.5 pg (26-34); Mean Corpuscular Volume 104.9 fl (80-100); Mean Platelet Volume 9.7 fl (7.4-10.4); Monocytes Absolute Auto 0.7 K/mm3 (0.1-0.6); Monocytes Percent Auto 13.3 % (2.6-8.5); Neutrophils Absolute Auto 1.4 K/mm3 (1.3-6.7); Neutrophils Percent Auto 24.6 % (45.5-73.1); Platelet Count Result 118 k/mm3 (150-375); Red Blood Count 3.48 M/mm3 (4.2-5.4); Red Cell Distribution Width 14.9 % (11.5-14.5); White Blood Count 5.5 K/mm3 (4.5-10.0)
[2023-07-14 14:06] LABS: Alanine Aminotransferase 24 U/L (6-35); Albumin Level 4.5 g/dL (3.5-5.1); Alkaline Phosphatase 72 U/L (38-126); Anion Gap 7 mmol/L (8-16); Aspartate Amino Transferase 41 U/L (14-36); Bilirubin,Total 0.8 mg/dL (0.2-1.3); Blood Urea Nitrogen 18 mg/dL (7-17); Calcium 9.7 mg/dL (8.4-10.2); Carbon Dioxide 24 mmol/L (22-30); Chloride 105 mmol/L (98-107); Estimated Glomerular Filt Rate > 60; Glucose 95 mg/dL (65-110); Lactate Dehydrogenase 187 U/L (120-246); Potassium 4.2 mmol/L (3.4-5.0); Sodium 136 mmol/L (137-145)
== END 2023-07-14 12:57 | disposition home or self-care (01) ==
LOC: ANHLAB 12:58
PROVIDERS: PCP Internal Medicine; Visit Provider Internal Medicine Hematology & Oncology
DX: D72.820 Lymphocytosis (symptomatic) (principal)
CPT/HCPCS: 36415; 80053; 83615; 85025

== ENCOUNTER 2023-10-06 14:10 | Outpatient (CLI) | payer MEDICARE, SELFPAY ==
--- NOTE | ~2023-10-06 | MM_ITS ---
EXAMINATION: MM screening estelita BI w rajesh HISTORY: Screening TECHNIQUE: Craniocaudal and mediolateral oblique 3-D tomosynthesis images were obtained and synthetic 2-D images were generated. CAD analysis was submitted and interpreted. COMPARISON: Comparison to multiple prior studies sequentially, with oldest reviewed study dated 12/13. BREAST PARENCHYMAL COMPOSITION: Dense: The breasts are heterogeneously dense, which may obscure small masses FINDINGS: There is no evidence of suspicious mass, calcification, or architectural distortion to sugg est malignancy in either breast. There has been no suspicious interval change. IMPRESSION: 1. No mammographic evidence of malignancy. 2. Recommend routine screening mammography in one year. BI-RADS Category 1: Negative Reviewed, dictated and finalized at location B.
== END 2023-10-06 14:11 | disposition home or self-care (01) ==
LOC: ANHIMG 14:12
PROVIDERS: PCP Internal Medicine; Visit Provider Internal Medicine
DX: Z12.31 Encounter for screening mammogram for malignant neoplasm of breast (principal)
CPT/HCPCS: 77063; 77067

== ENCOUNTER 2023-11-23 15:21 | Outpatient (CLI) | payer MEDICARE, SELFPAY ==
--- NOTE | ~2023-11-23 | XR_ITS ---
EXAM: XR shoulder LT min 2V DATE: 11/23/2023 15:40 HISTORY: M25.512 - Pain in left shoulder . COMPARISON: None available. FINDINGS: Decreased mineralization. No fracture or dislocation. No lytic or blastic lesion. Amorphou s calcification of the distal cuff. Mild AC hypertrophy. Mild inferior AC osteophytosis. No erosion o r periosteal change. Soft tissues within normal limits. IMPRESSION: Osteopenia. Calcific tendonitis of the superior rotator cuff. Reviewed, dictated and finalized at location K.
== END 2023-11-23 15:22 ==
PROVIDERS: PCP Internal Medicine; Visit Provider Clinical Nurse Specialist
DX: M75.32 Calcific tendinitis of left shoulder (principal); M85.88 Other specified disorders of bone density and structure, other site
CPT/HCPCS: 73030

== ENCOUNTER 2023-11-24 09:27 | Outpatient (CLI) | payer MEDICARE, SELFPAY ==
[2023-11-24 09:51] LABS: Basophils Percent Auto 0.4 % (0.2-1.2); Eosinophils Absolute Auto 0.1 K/mm3 (0-0.3); Immature Granulocyte Absolute 0.02 K/mm3 (0.00-0.031); Immature Granulocyte Percent A 0.4 % (0-0.5); Lymphocytes Percent Auto 73.1 % (18.3-44.2); Mean Corpuscular HGB Conc 32.4 g/dl (32-36); Mean Corpuscular Hemoglobin 34.1 pg (26-34); Mean Corpuscular Volume 105.1 fl (80-100); Mean Platelet Volume 10.2 fl (7.4-10.4); Monocytes Absolute Auto 0.2 K/mm3 (0.1-0.6); Monocytes Percent Auto 4.7 % (2.6-8.5); Neutrophils Percent Auto 20.4 % (45.5-73.1); Platelet Count Result 109 k/mm3 (150-375); Red Blood Count 3.52 M/mm3 (4.2-5.4); Red Cell Distribution Width 14.6 % (11.5-14.5); White Blood Count 5.1 K/mm3 (4.5-10.0)
[2023-11-24 10:36] LABS: Alanine Aminotransferase 18 U/L (6-35); Albumin Level 4.6 g/dL (3.5-5.1); Alkaline Phosphatase 85 U/L (38-126); Anion Gap 11 mmol/L (4-12); Aspartate Amino Transferase 26 U/L (14-36); Bilirubin,Total 0.6 mg/dL (0.2-1.3); Blood Urea Nitrogen 21 mg/dL (7-17); Calcium 9.6 mg/dL (8.4-10.2); Carbon Dioxide 24 mmol/L (22-30); Chloride 102 mmol/L (98-107); Estimated Glomerular Filt Rate > 60; Glucose 90 mg/dL (65-110); Lactate Dehydrogenase 182 U/L (120-246); Potassium 4.1 mmol/L (3.4-5.0); Sodium 137 mmol/L (137-145)
[2023-11-24 10:37] LABS: Cholesterol 245 mg/dL (0-200); HDL Direct 75 mg/dL; Triglycerides 143 mg/dL (<150)
[2023-11-24 10:48] LABS: LDL Cholesterol Direct 119 mg/dL
== END 2023-11-24 09:28 | disposition home or self-care (01) ==
LOC: ANHLAB 09:29
PROVIDERS: Clinical Nurse Specialist; PCP Internal Medicine; Visit Provider Internal Medicine Hematology & Oncology
DX: R07.89 Other chest pain (principal); Z13.220 Encounter for screening for lipoid disorders; I95.9 Hypotension, unspecified; Z82.49 Family history of ischemic heart disease and other diseases of the circulatory system
CPT/HCPCS: 36415; 80053; 80061; 83615; 85025

== ENCOUNTER 2023-12-06 09:03 | Outpatient (CLI) | payer MEDICARE, SELFPAY ==
--- NOTE | ~2023-12-06 | MR_ITS ---
EXAMINATION: MR shoulder LT wo con DATE: 12/06/2023 09:49 INDICATION: Left shoulder pain. TECHNIQUE: Magnetic resonance imaging (MRI) of the left shoulder was performed without intravenous co ntrast. Sequences included axial PD-weighted FS FSE, coronal oblique PD-weighted FS FSE and T2-weight ed FS FSE, and sagittal oblique T2-weighted FS FSE and T1-weighted FSE. COMPARISON: Left shoulder radiographs 11/23/2023 FINDINGS: Coracoacromial arch: The acromion undersurface is curved in morphology with anterior hook (type III). There is severe acro mioclavicular joint osteoarthritis including inferiorly directed osteophytes. There is mild subacromi al/subdeltoid bursitis. Rotator cuff: There is severe supraspinatus tendinopathy with calcific tendinitis. No tear. Infraspinatus, teres mi nor, and subscapularis tendons are normal. The rotator cuff muscle bellies are normal. Biceps tendon and glenoid labrum: Biceps tendon is in bicipital groove. Intra-articular biceps tendon is normal. The glenoid labrum is normal. Fluid: There is no glenohumeral joint effusion. Bones/cartilage: Glenoid cartilage is normal. Humeral head cartilage is normal. IMPRESSION: 1. Severe supraspinatus tendinopathy with calcific tendinitis. No tear. 2. Severe acromioclavicular joint osteoarthritis. 3. Mild subacromial/subdeltoid bursitis. Reviewed, dictated and finalized at location A.
== END 2023-12-06 09:04 ==
LOC: GOSHIMG 09:03
PROVIDERS: PCP Internal Medicine; Visit Provider Clinical Nurse Specialist
DX: M67.814 Other specified disorders of tendon, left shoulder (principal); M75.32 Calcific tendinitis of left shoulder; M19.012 Primary osteoarthritis, left shoulder; M75.52 Bursitis of left shoulder
CPT/HCPCS: 73221

== ENCOUNTER 2024-01-12 09:00 | Outpatient (RCR) | payer MEDICARE, SELFPAY ==
--- NOTE | 2023-12-27 09:47 | OPREHPOC ---
Outpatient Therapy Plan of Care This is a Multidisciplinary Plan of Care that may contain components documented by all disciplines (PT, OT, and ST.) PT Problem 1 PT Problem #1 Knowledge Deficit PT Goal 1 Goal / Goal Update Pt to be IND with issued HEP Target Visit 4 PT Goal 2 Goal / Goal Update Pt to demonstrate improved posture with shoulder motion 80% of the time. PT Problem 2 PT Problem #2 Pain PT Goal 1 Goal / Goal Update pt to continue to report pain no great than 3/10 in the last week. Target Visit 4
--- NOTE | 2023-12-27 09:47 | PTOPEVAL1 ---
Assessment and note entered by Leo Garcia, PT, DPT Evaluation Information Assessment Status Evaluation Subjective Information Pt reports she swims 5 day a week. Pt states in August she started to have some discomfort in both arms, she went on vacation and her pain improved, she attributed it to taking a break from swimming. She states in October her L shoulder got hot, swollen, painful, and was difficult to move. Imaging was done and all came back good. She states her shoulder is doing well now but has been favoring her shoulder. She has taken a couple of week off swimming d/t cleaning and she plans to return to swimming tomorrow. She has been in contact with ortho. Reported Pain Level Pain Score 1: Self Report Assessment PT Clinical Summary Pt presents to therapy today with a recent onset of L shoulder pain. She demonstrates great shoulder ROM and strength but has forward and rounded shoulders likely contributing to impingement like symptoms. Pt education given on posture. Skilled therapy services are indicated to improve shoulder positioning, body awareness, and to manage symptoms with return to PLOF. Plan of Care Interventions Electrical Stimulation,Hot Pack/Cold Pack,Manual Therapy,Neuro Re-education,Paraffin Bath, Therapeutic Activities,Therapeutic Exercise PT Services Indicated Yes Treatment Frequency and 1x/wk for 6 visits Duration These treatments will address the objective and functional deficits as defined above. The patient will be advanced safely and appropriately in order for the patient to progress towards his/her prior level of function. Additional exercises will be introduced and as well as a comprehensive home exercise program upon discharge, if needed, ?to ensure carryover of functional gains achieved in the clinic. This treatment plan has been reviewed and agreement upon by the patient.
--- NOTE | 2024-02-21 14:35 | PTOPDC ---
Assessment and note entered by Leo Garcia, PT, DPT Evaluation Information Assessment Status Discharge - Pt Not Presen Subjective Information Pt called to cancel remaining therapy visits. She states she is doing well and does not need to continue therapy. Assessment PT Clinical Summary Pt completed 2 visits of skilled therapy to treat her neck pain. She is doing well and request to be discharged at this time.
== END 2024-02-21 16:09 | disposition home or self-care (01) ==
LOC: ANHGOSHPT 09:00
PROVIDERS: PCP Nurse Practitioner; Visit Provider Clinical Nurse Specialist
DX: M25.512 Pain in left shoulder (principal)
CPT/HCPCS: 97110; 97161; 97530

== ENCOUNTER 2024-04-04 11:45 | Outpatient (CLI) | payer MEDICARE, SELFPAY ==
[2024-04-04 11:57] LABS: Basophils Percent Auto 0.2 % (0.2-1.2); Eosinophils Absolute Auto 0.1 K/mm3 (0-0.3); Eosinophils Percent Auto 0.9 % (0-4.4); Hemoglobin 11.6 g/dL (12.0-15.0); Immature Granulocyte Absolute 0.01 K/mm3 (0.00-0.031); Immature Granulocyte Percent A 0.2 % (0-0.5); Lymphocytes Absolute Auto 3.21 K/mm3 (0.9-3.2); Lymphocytes Percent Auto 58.9 % (18.3-44.2); Mean Corpuscular HGB Conc 33.1 g/dl (32-36); Mean Corpuscular Hemoglobin 35.4 pg (26-34); Mean Corpuscular Volume 106.7 fl (80-100); Mean Platelet Volume 9.7 fl (7.4-10.4); Monocytes Absolute Auto 0.9 K/mm3 (0.1-0.6); Monocytes Percent Auto 17.1 % (2.6-8.5); Neutrophils Absolute Auto 1.2 K/mm3 (1.3-6.7); Neutrophils Percent Auto 22.7 % (45.5-73.1); Platelet Count Result 98 k/mm3 (150-375); Red Blood Count 3.28 M/mm3 (4.2-5.4); Red Cell Distribution Width 14.9 % (11.5-14.5); White Blood Count 5.5 K/mm3 (4.5-10.0)
[2024-04-04 12:05] LABS: Atypical Lymphocytes Present; Giant Platelets Present; Platelet Estimate Adequate (Adequate); Schistocytes None Seen
[2024-04-04 13:04] LABS: Anion Gap 4 mmol/L (4-12); Blood Urea Nitrogen 14 mg/dL (7-17); Calcium 9.6 mg/dL (8.4-10.2); Carbon Dioxide 26 mmol/L (22-30); Chloride 106 mmol/L (98-107); Estimated Glomerular Filt Rate > 60; Glucose 98 mg/dL (65-110); Potassium 4.8 mmol/L (3.4-5.0); Sodium 136 mmol/L (137-145)
== END 2024-04-04 11:46 | disposition home or self-care (01) ==
LOC: ANHLAB 11:46
PROVIDERS: PCP Nurse Practitioner; Visit Provider Internal Medicine Hematology & Oncology
DX: D72.820 Lymphocytosis (symptomatic) (principal)
CPT/HCPCS: 36415; 80048; 85025

== ENCOUNTER 2024-07-03 12:45 | Outpatient (CLI) | payer MEDICARE, SELFPAY ==
[2024-07-03 13:07] LABS: Basophils Percent Auto 0.3 % (0.2-1.2); Eosinophils Absolute Auto 0.1 K/mm3 (0-0.3); Eosinophils Percent Auto 1.2 % (0-4.4); Hematocrit 34.2 % (37.0-47.0); Hemoglobin 11.4 g/dL (12.0-15.0); Immature Granulocyte Absolute 0.01 K/mm3 (0.00-0.031); Immature Granulocyte Percent A 0.2 % (0-0.5); Lymphocytes Absolute Auto 3.37 K/mm3 (0.9-3.2); Mean Corpuscular HGB Conc 33.3 g/dl (32-36); Mean Corpuscular Volume 104.9 fl (80-100); Monocytes Percent Auto 17.1 % (2.6-8.5); Neutrophils Absolute Auto 1.4 K/mm3 (1.3-6.7); Neutrophils Percent Auto 24.2 % (45.5-73.1); Platelet Count Result 90 k/mm3 (150-375); Red Blood Count 3.26 M/mm3 (4.2-5.4); White Blood Count 5.9 K/mm3 (4.5-10.0)
[2024-07-03 13:12] LABS: Platelet Estimate Decreased (Adequate); Schistocytes None Seen
[2024-07-03 13:13] LABS: Atypical Lymphocytes Present
[2024-07-03 14:11] LABS: Cholesterol 222 mg/dL (0-200); HDL Direct 65 mg/dL; Triglycerides 115 mg/dL (<150)
[2024-07-03 14:22] LABS: LDL Cholesterol Direct 105 mg/dL
[2024-07-03 19:43] LABS: Anion Gap 12 mmol/L (4-12); Blood Urea Nitrogen 13 mg/dL (7-17); Calcium 9.8 mg/dL (8.4-10.2); Carbon Dioxide 23 mmol/L (22-30); Chloride 102 mmol/L (98-107); Estimated Glomerular Filt Rate > 60; Glucose 91 mg/dL (65-110); Lactate Dehydrogenase 220 U/L (120-246); Potassium 4.8 mmol/L (3.4-5.0); Sodium 137 mmol/L (137-145)
== END 2024-07-03 12:46 | disposition home or self-care (01) ==
LOC: ANHLAB 12:48
PROVIDERS: PCP Nurse Practitioner; Referring Provider Internal Medicine Cardiovascular Disease; Visit Provider Internal Medicine Hematology & Oncology
DX: D72.820 Lymphocytosis (symptomatic) (principal); E78.00 Pure hypercholesterolemia, unspecified
CPT/HCPCS: 36415; 80048; 80061; 83615; 85025

== ENCOUNTER 2024-12-20 13:56 | Outpatient (CLI) | payer MEDICARE, SELFPAY ==
--- NOTE | ~2024-12-20 | XR_ITS ---
XR hand BI arthritis min 3V 12/20/2024 14:35 Indication: Osteoarthritis of the hands Procedure: 4 views each hand Comparison: No prior studies for comparison. Findings: Right hand There is mild polyarticular osteoarthritis of the first carpal metacarpal, MCP and IP joints. Osteopenia. No erosive changes. There is ventral subluxation at the second and third MCP joints. Left hand: Severe osteoarthritis of the triscaphe and first carpal metacarpal joints. Mild osteoarthritis first MCP joint. No acute fracture or traumatic malalignment. Impression: 1: Polyarticular osteoarthritis of the hands, most severe at the left first carpal metacarpal joint. Reviewed, dictated and finalized at location A. Impression: 1: Polyarticular osteoarthritis of the hands, most severe at the left first car pal metacarpal joint.
== END 2024-12-20 13:57 | disposition home or self-care (01) ==
PROVIDERS: PCP Internal Medicine; Visit Provider Clinical Nurse Specialist
DX: M19.042 Primary osteoarthritis, left hand (principal); M19.041 Primary osteoarthritis, right hand
CPT/HCPCS: 73130

== ENCOUNTER 2025-01-26 08:24 | Outpatient (CLI) | payer MEDICARE, SELFPAY ==
--- NOTE | ~2025-01-26 | MM_ITS ---
EXAMINATION: MM screening [facility] BI w rajesh HISTORY: Screening TECHNIQUE: Craniocaudal and mediolateral oblique 3-D tomosynthesis images were obtained and synthetic 2-D images were generated. CAD analysis was submitted and interpreted. COMPARISON: Comparison to multiple prior studies sequentially, with oldest reviewed study dated 04/07/2017. BREAST PARENCHYMAL COMPOSITION: The breasts are heterogeneously dense, which may obscure small masses. FINDINGS: There is no evidence of suspicious mass, calcification, or architectural distortion to suggest malignancy in either breast. Scattered benign-appearing calcifications are present. IMPRESSION: 1. No mammographic evidence of malignancy. 2. Recommend routine screening mammography in one year. BI-RADS Category 2: Benign finding(s). Reviewed, dictated and finalized at location B.
--- OUTSIDE RECORDS SUMMARY | 2025-01-26 08:29 | XMS_ITS | Clinical Summary ---
Author Organization [facility] [place] Address [address] [place] [address] Phone Care Team Providers Care International Travel Consultant Name Role Phone Brad Laguerre DO Primary Care Provider Allergies Active Allergy Reactions Criticality Noted Date Comments Codeine Hives High 07/17/2009 Sulfa (Sulfonamide Antibiotics) Nausea and Vomiting Low 03/10/2022 Medications MULTIVITAMIN ORAL Take by mouth. Active cholecalciferol, vitamin D3, (VITAMIN D3 ORAL) Take by mouth. Active cyanocobalamin (VITAMIN B-12) 50 mcg Tablet Take 50 mcg by mouth daily. Active Active Problems Patient Care Coordination No te Formatting of this note migh t be different from the original. 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 Abnormal findings on imaging test 02/25/2015 Enlarged lymph nodes Arthritis Resolved Problems Problem Noted Date Diagnosed Date Resolved Date Mammographic microcalcification 12/20/2013 02/25/2015 Encounters Date Type Department Care Team Description 01/23/2025 External Device Data STL ABSTRACTION Provider, Abstract 01/22/2025 Orders Only [facility] Oncology and Hematology - [place] [address] [phone] Jorge Dewitt MD Lymphocytosis 01/16/2025 External Device Data STL ABSTRACTION Provider, Abstract 01/08/2025 Orders Only [facility] Oncology and Hematology - [place] [address] [phone] Jorge Dewitt MD Lymphocytosis 12/25/2024 Orders Only [facility] Oncology and Hematology - [place] [address] [phone] Jorge Dewitt MD Lymphocytosis 12/11/2024 Orders Only [facility] Oncology and Hematology - [address] [place] [phone] Jorge Dewitt MD Lymphocytosis 11/27/2024 Orders Only [facility] Oncology and Hematology - [address] [place] [phone] Jorge Dewitt MD Lymphocytosis 11/15/2024 9:45 AM CDT Office Visit [facility] Oncology and Hematology - [place] [address] [place] [phone] Jorge Dewitt MD 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) (Primary Dx) 11/15/2024 External Device Data STL ABSTRACTION Provider, Abstract 11/14/2024 External Device Data STL ABSTRACTION Provider, Abstract 11/13/2024 Orders Only [facility] Oncology and Hematology - [place] [address] [place] [phone] Jorge Dewitt MD Lymphocytosis 10/30/2024 Orders Only [facility] Oncology and Hematology - [place] [address] [place] [address] Jorge Dewitt MD Lymphocytosis from Last 3 Months Immunizations Immunization Administration Dates Next Due (PREVNAR 20)(6 WKS UP) PNEUM OCOCCAL CONJUGATE VACCINE 20-VALENT (PCV20), POLYSACCHARIDE [id number] CONJUGATE, ADJUVANT 0.5 ML (PF) IM 12/23/2022 (SHINGRIX)(50 YRS UP) ZOSTER VACCINE RECOMBINANT, 0.5 ML, IM 12/25/2022 Family History Medical History Relation Name Comments Cancer Father LEUKEMIA Colon Cancer Maternal Grandfather Heart Disease Maternal Grandmother Other Maternal Grandmother DIABETE S Heart Disease Maternal Uncle 1 Other Maternal Uncle 1 DIABETES Prostate Cancer Maternal Uncle 1 Prostate Cancer Maternal Uncle 2 Prostate Cancer Maternal Uncle 3 Cancer Mother multimylosis Colon Cancer Mother Heart Disease Paternal Aunt No Known Problems Sister 1 No Known Problems Sister 2 No Known Problems Sister 3 No Known Problems Sister 4 Breast Cancer Neg Hx Ovarian Cancer Neg Hx Uterine Cancer Neg Hx Relation Name Status Comments Father Maternal Grandfather Maternal Grandmother Maternal Uncle 1 Maternal Uncle 2 Maternal Uncle 3 Mother Paternal Aunt Sister 1 Alive Sister 2 Alive Sister 3 Alive Sister 4 Alive Social History Tobacco Use Types Packs/Day Years Used Date Smoking Tobacco: Never Smokeless Tobacco: Never Tobacco Cessation:Counseling Given: Not Answered Alcohol Use Standard Drinks/Week Comments Not Currently 0 (1 standard drink = 0.6 oz pur e alcohol) Comments No Sex and Gender Information Value Date Recorded Sex Assigned at Not on file Legal 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 Gender Identity Not on file Sexual Orientation Not on file Occupation Industry Job Start Date Job End Date Not on file Not on file Not on file Not on file Last Filed Vital Signs Vital Sign Reading Time Taken Comments Blood Pressure 133/85 11/15/2024 9:24 AM CDT Pulse 71 11/15/2024 9:24 AM CDT Temperature 36.4 C (97.5 F) 11/15/2024 9:24 AM CDT Respiratory Rate 16 11/15/2024 9:24 AM CDT Oxygen Saturation 92% 11/15/2024 9:24 AM CDT Inhaled Oxygen Concentration - - Weight 60 kg (132 lb 3.2 oz) 11/15/2024 9:24 AM CDT Height 154.9 cm (5' 1) 07/16/2022 10:46 AM CDT Body Mass Index 24.98 07/16/2022 10:46 AM CDT Plan of Treatment Upcoming Encounters Date Type Department Care Team (Late st Contact Info) Description 03/21/2025 11:15 AM 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 Office Visit [facility] Oncology and Hematology - [place] [address] [place] [address] Jorge Dewitt MD [address] [place] [address] Health Maintenance Due Date Last Done Comments DTAP/TDAP/TD VACCINES (1 - Tdap) 1969 COLORECTAL SCREENING 1995 Colorectal Cancer Screening 1995 FIT-DNA Q 3 years 1995 FIT/FOBT Q 1 year 1995 Flex Sig/CT Colonography Q 5 years 1995 OSTEOPOROSIS SCREENING 2015 BREAST CANCER SCREENING 04/14/2020 04/14/20 19, 04/14/2019, 04/11/2018, Additional history exists ZOSTER VACCINE (2 of 2) 02/19/2023 12/25/2022 INFLUENZA VACCINE (#1) 2024 RSV VACCINE (60+ or ) (1 - 1-dose 75+ series) 2025 PNEUMOCOCCAL VACCINE 50+ YEARS Completed 12/23/2022 Medical Devices Implanted Type Area Flight Coordinator Device Identifier Shelf Expiration Date Model / Serial / Lot Breast Marker Breast Procedures Procedure Name Priority Date/Time Associated Diagnosis Comments CBC WITH DIFFERENTIAL Routine 11/09/2024 11:32 AM CDT MAMMO 3D TIFFANIE SCREEN BILAT W OR WO CAD Routine 04/14/2019 11:08 AM 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 Visit for screening mammogram from Last 3 Months or Most Recently Relevant to Health Maintenance Results * CBC WITH DIFFERENTIAL (11/09/2024 11:32 AM CDT) Blood us Jorge Dewitt MD HEMATOLOGY ORDERABLES Final Res ult * MAMMO SCRN BILAT 3D TIFFANIE W OR WO CAD (04/14/2019 11:08 AM 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) Anatomical Region Laterality Modality Breast Bilateral Mammography 04/14/2019 11:0 8 AM 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 Impressions 04/14/2019 1:05 PM 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 IMPRESSION: 1. No concerning findings. OVERALL FINAL ASSESSMENT: BI-RADS CATEGORY 1 - Negative. RECOMMENDATIONS: 1. Recommend annual mammography. Narrative 04/14/2019 1:05 PM 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 BILATERAL SCREENING DIGITAL MAMMOGRAM WITH TOMOSYNTHESIS AND CAD DATE: 04/14/2019 11:08 AM DICTATION LOCATION: [facility] HISTORY: Routine yearly screening exam. TECHNIQUE: Low-dose full-field digital breast tomosynthesis examination was performed of both breasts with 2D and 3D acquisitions. CAD was utilized. COMPARISON: Studies dating back to 12/13/2013. BREAST COMPOSITION: Scattered fibroglandular densities. FINDINGS: No concerning dominant masses, suspicious calcifications, parenchymal asymmetries or areas of architectural distortion are identified in either breast. Procedure Note Alex Hidalgo MD - 04/14/2019 BILATERAL SCREENING DIGITAL MAMMOGRAM WITH TOMOSYNTHESIS AND CAD DATE: 04/14/2019 11:08 AM DICTATION LOCATION: [facility] HISTORY: Routine yearly screening exam. TECHNIQUE: Low-dose full-field digital breast tomosynthesis examination was performed of both breasts with 2D and 3D acquisitions. CAD was utilized. COMPARISON: Studies dating back to 12/13/2013. BREAST COMPOSITION: Scattered fibroglandular densities. FINDINGS: No concerning dominant masses, suspicious calcifications, parenchymal asymmetries or areas of architectural distortion are identified in either breast. IMPRESSION: 1. No concerning findings. OVERALL FINAL ASSESSMENT: BI-RADS CATEGORY 1 - Negative. RECOMMENDATIONS: 1. Recommend annual mammography. Leela Hi MD MAMMO ORDERABLES Final Result from Last 3 Months or Most Recently Relevant to Health Maintenance Insurance AETNA O [facility] AETNA PPO MCR RX AETNA Medicare Part D RX AETNA Medicare Part D RX WHEAT PLANS (INTERNAL) [facility] Internal Plans Advance Directives For more information, please contact: [phone] * Full Code (Latest Code Status on File) Date Activated Date Inactivated Comments 06/29/2022 11:05 PM 06/30/2022 2:42 PM Care Teams International Travel Consultant Relationship Specialty Start Date End Date Brad Laguerre DO PCP - General 04/18/15
--- OUTSIDE RECORDS SUMMARY | 2025-01-26 08:29 | XMS_ITS | Encounter Summary ---
Author Organization [facility] Address [address] [place] [address] Care Team Providers Care Ribber Name Role Phone Brad Laguerre DO Primary Care Provider Encounter Details Date Type Department Care Team ([facility] Contact Info) Description 01/22/2025 Orders Only [facility] Oncology and Hematology [facility] [address] [place] [address] Jorge Dewitt MD [facility] [place] [phone] Lymphocytosis Social History Tobacco Use Types Packs/Day Years Used Date Smoking Tobacco: Never Smokeless Tobacco: Never Alcohol Use Standard Drinks/Week Comments Not Currently 0 (1 standard drink = 0.6 oz pur e alcohol) Comments No Sex and Gender Information Value Date Recorded Sex Assigned at Not on file Legal Sex Female 5:42 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 Gender Identity Not on file Sexual Orientation Not on file Occupation Industry Job Start Date Job End Date Not on file Not on file Not on file Not on file documented as of this encounter Plan of Treatment Upcoming Encounters Date Type Department Care Team ([facility] Contact Info) Description 03/21/2025 11:15 AM LINING CUTTER Office Visit [facility] Oncology and Hematology [facility] [address] [place] [address] Jorge Dewitt MD [address] [place] [address] documented as of this encounter Visit Diagnoses Diagnosis Lymphocytosis Lymphocytosis (symptomatic) documented in this encounter Care Teams Ribber Relationship Specialty Start Date End Date Brad Laguerre DO PCP - General 04/18/15 documented as of this encounter
--- OUTSIDE RECORDS SUMMARY | 2025-01-26 08:29 | XMS_ITS | Clinical Summary ---
Author Organization [facility] Address [address] [place] [id number] Care Team Providers Care Launch Steward Name Role Phone Brad Laguerre DO Primary Care Provider [phone] Allergies Active Allergy Reactions Criticality Noted Date Comments Codeine Hives Medium 09/28/2018 Sulfa (Sulfonamide Antibiotics) Nausea And Vomiting Low 03/10/2022 Medications No known medications Active Problems Problem Noted Date Diagnosed Date White coat syndrome without hypertension 025 ROONEY (dyspnea on exertion) 02/08/2023 Family history of ischemic heart disease 023 Hypercholesterolemia 02/08/2023 Syncope and collapse 09/28/2018 Surgical History Surgery Date Site/Laterality Comments HYSTERECTOMY KNEE SURGERY Medical History Medical History Date Comments Hypertension Mitral valve prolapse Anxiety Family History Medical History Relation Name Comments Leukemia Father Colon cancer Maternal Grandfather Diabetes Maternal Grandmother Heart disease Maternal Grandmother Stroke Maternal Grandmother Colon cancer Mother Stroke Paternal Grandmother Relation Name Status Comments Father Maternal Grandfather Maternal Grandmother Mother Paternal Grandmother Social History Tobacco Use Types Packs/Day Years Used Date Smoking Tobacco: Never Smokeless Tobacco: Never Alcohol Use Standard Drinks/Week Comments Yes 3 (1 standard drink = 0.6 oz pur e alcohol) Comments Unknown Sex and Gender Information Value Date Recorded Sex Assigned at Not on file Legal Sex 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 [employer] Gender Identity Not on file Sexual Orientation Not on file Obstetrics History Last Filed Vital Signs Vital Sign Reading Time Taken Comments Blood Pressure 148/82 05/22/2024 10:18 AM WASH[employer] Pulse 69 05/22/2024 10:18 AM WASHER [employer] Temperature - - Respiratory Rate - - Oxygen Saturation 98% 05/22/2024 10:18 AM WASHER HAND Inhaled Oxygen Concentration - - Weight 61.1 kg (134 lb 9.6 oz) 05/22/2024 10:18 AM WASHER HAND Height 154.9 cm (5' 1) 05/22/2024 10:18 AM WASHER HAND Body Mass Index 25.43 05/22/2024 10:18 AM WASHER HAND Plan of Treatment Health Maintenance Due Date Last Done Comments Colon Cancer Screening-Colonoscopy 1950 Depression Screening 1950 Fall Risk Assessment 1950 Hepatitis C Screening 1950 Osteoporosis Screening-Bone Density Scan 1950 DTaP/Tdap/Td Vaccine (1 - Tdap) 1961 Hepatitis B Screening 1968 Pneumococcal vaccine 65+ (1 of 1 - PCV) 2000 Well Visit 65+ 2015 Breast Cancer Screening-Mammogram 04/14/2020 04/14/2019, 04/14/2019, 04/11/2018, Additional history exists Zoster Vaccine (2 of 2) 02/19/2023 12/25/2022 Covid-19 Vaccine (7 - 2024-2 6 season) 2025 01/19/2023, 02/28/2022, 09/09/2021, Additional history exists Influenza Vaccine (#1) 2025 01/28/2023, [address] [place] [address] MEDICARE [facility] CHOICE PLUS MEDICARE [facility] Address: [address] [place] [phone] [facility] CHOICE PLUS [employer] MEDICARE Care Teams Launch Steward Relationship Specialty Start Date End Date Brad Laguerre DO PCP - General Internal Medicine 08/23/18
== END 2025-01-26 08:25 | disposition home or self-care (01) ==
LOC: ANHFOHIMG 08:26
PROVIDERS: PCP Internal Medicine; Visit Provider Internal Medicine
DX: Z12.31 Encounter for screening mammogram for malignant neoplasm of breast (principal)
CPT/HCPCS: 77063; 77067

== ENCOUNTER 2025-02-14 13:45 | Outpatient (RCR) | payer MEDICARE, SELFPAY ==
--- NOTE | 2025-01-05 15:58 | OTOPEVAL1 ---
Assessment and note entered by Daquan Sanders, YANA/Zoya, CHT Evaluation Information Assessment Status Evaluation Diagnosis Sprain of MCP join of unspecified finger Subjective Information Patient referred to OT with right middle and ring finger sagittal band rupture for fabrication of a custom orthosis. She reports the tendons have been subluxing for about a year. She is right handed. She reports intermittent pain when the ring finger gets stuck. She swims at the [facility] daily. Reported Pain Level Pain Score 0: Self Report Assessment OT Clinical Summary Patient referred to OT with dx of sagittal band rupture of digits III and IV on her right, dominant hand. Considered RMO - when placed digits III and IV in relative extension using a pencil, the small finger extensor tendon also subluxed. Instead, fabricated a custom MCP extension orthosis to support digits III-V to allow for IP motion. Index and thumb free. Issued extra strapping as patient plans to swim with her splint on. Issued intrinsic stretching as she overuses lumbricals for functional hand use. Continued follow up indicated for splinting needs/ modifications, modalities, manual therapy, therapeutic exercise, and HEP instruction// progression to facilitate optimal functional hand use. Plan of Care Interventions Therapeutic Exercise,Manual Therapy,Neuro Re- education,Therapeutic Activities,Self-Care/Home Management,Check Out for Orthotic/Prosthetic, Paraffin OT Services Indicated Yes Treatment Frequency and 1x/week for 6 visits Duration These treatments will address the objective and functional deficits as defined above. The patient will be advanced safely and appropriately in order for the patient to progress towards his/her prior level of function. Additional exercises will be introduced and as well as a comprehensive home exercise program upon discharge, if needed, ?to ensure carryover of functional gains achieved in the clinic. This treatment plan has been reviewed and agreement upon by the patient.
--- NOTE | 2025-01-05 15:59 | OPREHPOC ---
Outpatient Therapy Plan of Care This is a Multidisciplinary Plan of Care that may contain components documented by all disciplines (PT, OT, and ST.) OT Problem 1 OT Problem #1 Knowledge Deficit OT Goal 1 Goal / Goal Update 1. Patient to be independent with instructed materials. Target Visit 6 OT Problem 2 OT Problem #2 Impaired Range of Motion OT Goal 1 Goal / Goal Update 1. Patient to be able to make a fist and fully extend the fingers of her right hand without the extensor tendon subluxing off the MCP joint. Target Visit 6
--- NOTE | 2025-02-14 14:41 | OTOPPROG ---
Assessment and note entered by YANA Hensley/Zoya, NORMAT OT Progress Update 02/14/25 Assessment Status Progress Diagnosis Sprain of MCP join of unspecified finger Subjective Information HPI: Patient referred to OT with right middle and ring finger sagittal band rupture for fabrication of a custom orthosis. She reports the tendons have been subluxing for about a year. She is right handed. 02/14/25: Patient presents today after 6 weeks of MCP extension splinting. She reports her hand feels the same. She reports good compliance with the splinting. ROM: Extensor tendons of the right middle, ring, and small fingers sublux ulnarly when making a fist. When fully extending the fingers they have an ulnar drift. Passively correctable. She is able to make a hook fist. 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 She has completed 6 weeks of therapy and splinting. - Initially considered RMO. When placed digits III and IV in relative extension using a pencil, the small finger extensor tendon also subluxed. - Instead, fabricated a custom MCP extension orthosis to support digits III-V to allow for IP motion. Index and thumb free. Issued intrinsic stretching as she overuses lumbricals for functional hand use. - Patient has completed 6 weeks of splinting. Today the extensor tendons continue to sublux ulnarly when making a fist demonstrating no evidence of a functional sagittal band. Discussed pivoting treatment to strengthening finger flexors , inhibiting overuse of the intrinsics, and education on adaptive ADL techniques. Continued follow up indicated for splinting needs/ modifications, modalities, manual therapy, adaptive ADL education, therapeutic exercise, and HEP instruction//progression to facilitate optimal functional hand use. Plan of Care Interventions Therapeutic Exercise,Manual Therapy,Neuro Re- education,Therapeutic Activities,Self-Care/Home Management,Check Out for Orthotic/Prosthetic, Paraffin OT Services Indicated Yes Treatment Frequency and 1x/week for 6 visits Duration These treatments will address the objective and functional deficits as defined above. The patient will be advanced safely and appropriately in order for the patient to progress towards his/her prior level of function. Additional exercises will be introduced and as well as a comprehensive home exercise program upon discharge, if needed, ?to ensure carryover of functional gains achieved in the clinic. This treatment plan has been reviewed and agreement upon by the patient.
--- NOTE | 2025-02-14 14:42 | OPREHPOC ---
Outpatient Therapy Plan of Care This is a Multidisciplinary Plan of Care that may contain components documented by all disciplines (PT, OT, and ST.) OT Problem 1 OT Problem #1 Knowledge Deficit OT Goal 1 Goal / Goal Update 1. Patient to be independent with instructed materials. ---OT POC UPDATE 02/14/25--- 1. Met, continue as HEP is progressed Target Visit 12 OT Problem 2 OT Problem #2 Impaired Range of Motion OT Goal 1 Goal / Goal Update 1. Patient to be able to make a fist and fully extend the fingers of her right hand without the extensor tendon subluxing off the MCP joint. ---OT POC UPDATE 02/14/25--- 1. Not met; D/C goal Target Visit 12 OT Problem 3 OT Problem #3 Impaired Strength OT Goal 1 Goal / Goal Update ---OT POC UPDATE 02/14/25--- New Strength Goals: 1. Pt to be able to complete chief architect strengthening into red putty without fingers cramping. 2. Pt to be able to complete hook chief architect strengthening into red putty without support from table. Target Visit 12 OT Problem 4 OT Problem #4 Impaired Functional ADLs OT Goal 1 Goal / Goal Update ---OT POC UPDATE 02/14/25--- New ADL Goal: 1. Pt to report no cramping in the right hand during ADLs. Target Visit 12
--- NOTE | 2025-03-13 09:01 | OTOPDC ---
Assessment and note entered by Daquan Sanders, OTR/L, CHT OT D/C 03/13/25 OT Clinical Summary Patient reassessed on 02/14/25 - at that time continued therapy was recommended, however she wanted to follow up with Dr. Smith before she scheduled more therapy. She has decided to discontinue therapy at this time. Please refer to progress note, dated 02/14/25, for most recent summary. D/C OT per patient request.
== END 2025-03-13 12:53 | disposition home or self-care (01) ==
LOC: ANHGOSHOT 13:45
PROVIDERS: PCP Internal Medicine; Visit Provider Plastic Surgery
DX: S63.652A Sprain of metacarpophalangeal joint of right middle finger, initial encounter (principal); S63.654A Sprain of metacarpophalangeal joint of right ring finger, initial encounter
CPT/HCPCS: 97018; 97110; 97140; 97167; 97763; L3913